=== PATIENT | female | born 1950 | race African-American/Black ===

== ENCOUNTER 2017-08-06 11:12 | Emergency (ER) | payer MEDICARE ==
[~2017-08-06] VITALS: Ht 157.5 cm; Wt 110.0 kg
[~2017-08-06 11:12] MED LIST: CELEBREX200 MG PO; COREG12.5 MG PO; CYCLOBENZAPR10 MG PO; EXFORGE1 TA2 PO; FLEXERIL PO; MAGNESIUM-OX400 MG PO; POTASSI20 XX; PRAVACHOL10 MG PO; ROBAXIN-750750 MG PO; RYBIX ODT50 MG PO; TRAMADOL HCL50 MG PO; ULTRAM50 M1 PO
[2017-08-06] MEDS ORDERED: HYDROMORPHONE HC2 MG PO (11:39)
[2017-08-06] MEDS ORDERED: XARELTO10 MG PO (11:40)
[2017-08-06] MEDS ORDERED: AMLODIPINE BESY1 TA7 PO (11:41)
[2017-08-06] MEDS ORDERED: CELEBREX100 MG PO (11:42)
[2017-08-06] MEDS ORDERED: ZPAK PO (11:58)
[2017-08-06 12:13] VITALS: BP 129/85
== END 2017-08-06 12:13 | disposition home or self-care (01) ==
LOC: ED 11:12
DX: J40 Bronchitis, not specified as acute or chronic (principal); I10 Essential (primary) hypertension; H40.9 Unspecified glaucoma

== ENCOUNTER 2018-06-02 16:56 | Emergency (ER) | payer MEDICARE ==
[~2018-06-02] VITALS: Ht 157.5 cm; Wt 100.0 kg
[~2018-06-02 16:56] MED LIST changes: +AMLODIPINE BESY1 TA7 PO; +CELEBREX100 MG PO; +HYDROMORPHONE HC2 MG PO; +XARELTO10 MG PO; +ZPAK PO
[2018-06-02 18:52] VITALS: BP 152/86
[2018-06-02] MEDS ORDERED: MOTRIN400 MG PO (18:52)
== END 2018-06-02 19:00 | disposition home or self-care (01) ==
LOC: ED 16:56
DX: S76.911A Strain of unspecified muscles, fascia and tendons at thigh level, right thigh, initial encounter (principal); S86.911A Strain of unspecified muscle(s) and tendon(s) at lower leg level, right leg, initial encounter; I10 Essential (primary) hypertension; W06.XXXA Fall from bed, initial encounter; Z96.643 Presence of artificial hip joint, bilateral; M79.604 Pain in right leg; M79.89 Other specified soft tissue disorders

== ENCOUNTER 2019-02-17 13:00 | Outpatient (RCR) | payer MEDICARE ==
[~2019-02-17 13:00] MED LIST changes: +MOTRIN400 MG PO
== END 2019-02-17 14:00 | disposition home or self-care (01) ==
LOC: PT 13:00
PROVIDERS: ATTEND Orthopaedic Surgery Adult Reconstructive Orthopaedic Surgery
DX: Z47.1 Aftercare following joint replacement surgery (principal); Z96.652 Presence of left artificial knee joint; M54.5 Low back pain